=== PATIENT | female | born 1980 | race Caucasian/White ===

== ENCOUNTER → 2016-07-23 10:00 | Outpatient (CLI) | payer MEDICAID ==
[2010-03-07 00:30] VITALS: BMI 32.1
[~2016-07-23 10:00] MED LIST: AMBIEN10 MG PO; CYCLOBENZAPRINE10 MG PO; HYDROCODONE-APA1 TAB PO; LEVOTHYROXINE50 MCG PO; XANAX1 MG PO; ZANAFLEX4 MG PO
[2016-09-01 06:41] VITALS: BMI 24.8
== END | disposition home or self-care (01) ==
LOC: D.MRI 07-18 13:00
DX: M75.21 Bicipital tendinitis, right shoulder (principal); S43.491A Other sprain of right shoulder joint, initial encounter

== ENCOUNTER 2016-09-01 06:34 | Day surgery (SDC) | payer MEDICAID ==
[2016-08-29 10:13] LABS: HEMOGLOBIN 13.7 g/dL (12-16); MCH 31.9 pg (26.0-34.0); MCHC 34.3 g/dL (31.0-37.0); MCV 93.2 fL (80.0-100.0); MEAN PLATELET VOLUME 9.8 fL (7.4-10.4); RBC 4.29 10x6/uL (4.00-5.40); RDW 12.2 % (11.5-14.5); WBC 7.1 10x3/uL (4.8-10.8)
[~2016-09-01] VITALS: Ht 160 cm; Wt 63.5 kg
[~2016-09-01 06:34] MED LIST changes: -HYDROCODONE-APA1 TAB PO
[2016-09-01 06:41] VITALS: BP 112/78; Ht 160 cm; Wt 63.5 kg
[2016-09-01] MEDS ORDERED: HYDROCODONE-APA1 TAB PO (08:46)
--- NOTE | 2016-09-01 09:06 | NUR ---
VANCOMYCIN 1 GRAM IN 250CC OF NORMAL SALINE INFUSING ON ADMIT
--- NOTE | 2016-09-01 10:14 | NUR ---
1014--IV DC'D, PT UP TO DRESS AT THIS TIME. DENISE MULLIGAN
--- NOTE | 2016-09-01 10:44 | NUR ---
1040--DISCHARGE INSTRUCTIONS GIVEN, PT VERBALIZES UNDERSTANDING. PT OFF UNIT VIA SHILO. DENISE MULLIGAN
--- NOTE | 2016-09-03 09:22 | OP ---
PATIENT NAME: LAUREN FIGUEROA MEDICAL RECORD: [id number] :82 LOCATION:[facility] ADMISSION DATE: SURGEON: KENDY DUNN MD DATE OF OPERATION: 09/01/2016 PREOPERATIVE DIAGNOSES: Impingement syndrome, acromioclavicular arthritis and biceps tendinitis. POSTOPERATIVE DIAGNOSES: Impingement syndrome, acromioclavicular arthritis and biceps tendinitis. PROCEDURES: Arthroscopic subacromial decompression and distal clavicle excision. SURGEON: Kendy Dunn MD. ANESTHESIA: General. INTRAOPERATIVE COMPLICATIONS: None. SUMMARY OF PATHOLOGIC FINDINGS: While the patient did have biceps tendinitis, I felt like it did not warrant tenotomy or tenodesis. She did have severe impingement with excoriation of the coracoacromial ligament as well as the supraspinatus tendinous footprint. OPERATIVE SUMMARY IN DETAIL: After obtaining the appropriate preoperative orthopedic surgery consents as well as anesthetic consultation, evaluation and clearance, the patient was brought to the operating room and placed on the operating table in supine position. After general laryngeal mask was administered, the patient was placed in a left lateral decubitus position. All pressure points were well padded to include down leg peroneal pad as well as axillary roll. The patient was held firmly to the operating table using the vacuum pack suction system. Right upper extremity and shoulder were then prepped and draped in a routine sterile fashion. The arm was held in the Arthrex traction boom at 30 degrees of forward flexion, 30 degrees of abduction with 10 pounds of traction laterally. Arthroscopy was established in the glenohumeral joint from a posterior portal. Anterior portal was established in the anterior safe interval. Diagnostic arthroscopy showed the patient to have biceps tendonitis. Intraoperative photographs were taken. Attention was then turned to the subacromial space. Accessory tertiary portal was created to use the [place] tissue ablation system to denude the undersurface of the acromion of all soft tissue elements and released coracoacromial ligament. A 5-0 barrel faviola was then used to perform acromioplasty at the level of acromioclavicular joint. Having completed this, through a separate anterior arthroscopic portal, a 1 cm distal clavicle was excised. Having completed this, arthroscopy portals were closed in routine interrupted fashion using 4-0 Prolene. Sterile dressings were applied. The patient was awakened, taken to recovery in stable condition. All final needle and sponge counts were correct. TRANSINT:[id number] Voice Confirmation ID: [id number] DOCUMENT ID: [id number] OPERATIVE REPORT [id number] LAUREN FIGUEROA MD, KENDY DALTON at 0922 CC: [id number] DICTATION DATE: 09/01/16 0843 SPECIAL EDUCATION TUTOR: 09/01/16 1054 [facility] 09/01/[address] [address]
== END 2016-09-01 10:40 | disposition home or self-care (01) ==
LOC: D.OPS 06:34 → D.PAN 09:00 → D.OPS 09:20 → D.PAN 09:20 → D.OPS 10:15 → D.PAN 10:35 → D.OPS 10:40
PROVIDERS: Anesthesiology
DX: M75.41 Impingement syndrome of right shoulder (principal); M13.811 Other specified arthritis, right shoulder; M75.21 Bicipital tendinitis, right shoulder

== ENCOUNTER → 2016-11-14 09:44 | Outpatient (CLI) | payer MEDICAID ==
[2016-09-01 06:41] VITALS: BMI 24.8
[~2016-11-14 09:44] MED LIST changes: +HYDROCODONE-APA1 TAB PO
== END | disposition home or self-care (01) ==
LOC: D.MRI 09:44
DX: M25.511 Pain in right shoulder (principal); S43.491A Other sprain of right shoulder joint, initial encounter

== ENCOUNTER 2017-01-26 01:58 | Emergency (ER) | payer MEDICAID ==
[2016-09-01 06:41] VITALS: BMI 24.8
== END 2017-01-26 03:23 | disposition home or self-care (01) ==
LOC: D.ER 01:58
DX: S16.1XXA Strain of muscle, fascia and tendon at neck level, initial encounter (principal); V89.2XXA Person injured in unspecified motor-vehicle accident, traffic, initial encounter; S43.401A Unspecified sprain of right shoulder joint, initial encounter

== ENCOUNTER 2017-05-25 07:10 | Inpatient (IN) | payer MEDICAID ==
[2017-05-22 12:08] LABS: BASOPHILS 0.1 % (0-2); EOSINOPHILS 0.4 % (0-7); HEMATOCRIT 40.6 % (36.0-48.0); HEMOGLOBIN 14.3 g/dL (12-16); LYMPHOCYTES 32.9 % (15-50); MCH 32.7 pg (26.0-34.0); MCHC 35.2 g/dL (31.0-37.0); MCV 92.9 fL (80.0-100.0); MEAN PLATELET VOLUME 9.7 fL (7.4-10.4); MONOCYTES 5.8 % (2-11); NEUTROPHILS 60.8 % (40-80); PLATELET COUNT 231 10x3/uL (130-400); RBC 4.37 10x6/uL (4.00-5.40); RDW 11.9 % (11.5-14.5); WBC 6.8 10x3/uL (4.8-10.8)
[2017-05-22 12:17] LABS: CALC OSMOLALITY 276 mosm/kg (275-300); CALCIUM 9.3 mg/dL (8.5-10.1); CARBON DIOXIDE 27.4 mmol/L (21.0-32.0); CHLORIDE - SERUM 103 mmol/L (98-107); CREATININE - SERUM 0.9 mg/dL (0.6-1.3); GLUCOSE 81 mg/dL (74-106); POTASSIUM - SERUM 3.5 mmol/L (3.5-5.1); SODIUM 139 mmol/L (136-145); UREA NITROGEN 13 mg/dL (7-18); eGFR NON AFRICAN AMERICAN 75 mL/min (90-120)
[2017-05-25] VITALS (15 sets, daily range): BP systolic 97–122; BP diastolic 58–75; Ht 160 cm; Wt 64.1 kg
[~2017-05-25] VITALS: Ht 160 cm; Wt 64.1 kg
[~2017-05-25 07:10] MED LIST changes: +HYDROCODON-ACE1 EAC7 PO; +KLONOPIN1 MG PO
[2017-05-25 08:04] LABS: HCG URINE NEGATIVE (NEGATIVE)
--- NOTE | 2017-05-25 13:08 | NUR ---
Pt received to room by bed with bedside report from recovery nurse. Pt is resting with eyes closed, 2L O2via NC wiht O2 sat at 98%, Pt does wake when her name is spoken and arm shaken slightly, she is able to answer questions about pain and states "that catheter hurts, please take it out" before able to explain why that can't be done at this time, pt falls back to sleep. Bikini incision with dermabond, clean and dry. Abd soft to touch. Sim cath to bedside drain with 30ml dark valdo urine noted. IV to right wrist patent and infusing via pump per orders. SCD's on bilat and pump turned on. Pt family allowed to come to room. Pt does not awaken except to complain of her catheter causing her pain. Attempt to reposition catheter wihtout success, also repositioned pt to right tilt and pillow under knees to help decrease pressure. Side rails up x 2 with phone and call light in reach. whiteboard updated.
--- NOTE | 2017-05-25 13:12 | NUR ---
Dilaudid mud logger started, pt given mud logger button and verbally explained use twice. Pt mother ask if she can push the button for her since she was sleeping. Explained that if pt is sleeping than pain was under enough control to allow her ability to rest. Also explained that if someone else continue to use pt mud logger than could cause resp depression, pt spouse at bedside and heard this conversation also. Side rails up x 2 with phone and call light in reach.
--- NOTE | 2017-05-25 14:06 | NUR ---
1000ML LR BOLUS BEGUN VIA ALARIS PUMP AT THIS TIME PER V/O DR EMERSON.
--- NOTE | 2017-05-25 14:48 | NUR ---
TORADOL GIVEN SIVP PER ORDERS. SEE EMAR. PT'S MOTHER NOTED TO PUSH DELIVERY STOCK CLERK BUTTON AT THIS TIME. PT SOMNOLENT, AROUSES ONLY TO STRONG TACTILE STIMULATION ON ARM. ADV PT'S MOTHER THAT DELIVERY STOCK CLERK BUTTON IS ONLY TO BE PRESSED BY PT DUE TO OVERSEDATION AND RESPIRATORY DEPRESSION. PT'S MOTHER STATES "SHE PRESSED IT. I SAW HER PRESS IT." ADV AGAIN THAT PT IS THE ONLY ONE WHO NEEDS TO PRESS BOLUS BUTTON. UNDERSTANDING VERBALIZED. BED LOW, WHEELS LOCKED, CL IN REACH, SIDE RAILS UP X2.
--- NOTE | 2017-05-25 14:52 | NUR ---
LR BOLUS COMPLETE. OLD BAG DOWN, NEW BAG UP TO PRESENT TUBING.
--- NOTE | 2017-05-25 15:18 | NUR ---
PAIN REASSESSMENT COMPLETE. PT RESTING WITH EYES CLOSED, RESP EVEN & UNLABORED. PT LEFT UNDISTURBED.
--- NOTE | 2017-05-25 15:53 | NUR ---
RN TO PT BEDSIDE WITH FRESH ICE CAP AND CUP OF ICE CHIPS. PT STATES " I WANT THIS CATHETER OUT NOW." EDU PT ON NEED FOR CORTEZ CATH AT THIS TIME AND THAT MD WILL GIVE ORDER LATER ON THIS EVENING TO REMOVE. PT VERBALIZED UNDERSTANDING. 125ML DARK YELLOW URINE EMPTIED FROM UROMETER AT THIS TIME. PT REPOSITIONED TO RIGHT LATERAL TILT WITH PILLOW AT BACK FOR SUPPORT. PT TOLERATED WELL. SHIFT ASSESSMENT COMPLETED AT THIS TIME. BREATH SOUNDS CLEAR AND UNLABORED X2. HR-RRR, PPP, BOWEL SOUNDS HYPOACTIVE X4. ABD NONDISTENDED, TENDER TO TOUCH. LOW TRANSVERSE INCISION WITH DERMABOND C/D/I WITH ICE CAP OVER INCISION. PIV NOTED TO RT WRIST PATENT WITH NO ERYTHEMA OR EDEMA NOTED. LR INFUSING @ 125ML/HR VIA ALARIS PUMP. PT DENIES FURTHER NEEDS AT THIS TIME. BED LOW, WHEELS LOCKED, CL IN REACH, SIDE RAILS UP X2.
--- NOTE | 2017-05-25 16:00 | NUR ---
PT REPORTS CUP OF ICE FELL ON FLOOR. FRESH CUP PROVIDED. PT DENIES FURTHER NEEDS OR PAINA T THIS TIME. WILL CONT TO MONITOR.
--- NOTE | 2017-05-25 17:38 | NUR ---
REGLAN 10MG/2ML SIVP GIVEN PER ORDERS SEE EMAR. TORADOL 30MG/1ML GIVEN SIVP. PT TOLERATED WELL. 50 ML CLEAR YELLOW URINE EMPTIED FROM UROMETER. PUMPS CLEARED AT THIS TIME. PT REPOSITIONED TO LT LATERAL TILT WITH PILLOW AT BACK FOR SUPPORT. PT DENIES FURTHER NEEDS.
--- NOTE | 2017-05-25 19:15 | NUR ---
EYES CLOSED DURING INITIAL ROUNDS BUT EASILY AWAKENED. INTRODUCED SELF. V/S TAKEN. ASSESSMENT DONE. STATUS POST BRAXTON TODAY. LOW ABD TRANSVERSE INCISION WITH DERMABOND. IVF LR TO R WRIST AREA @ 125cc/hr. IV SITE OK. ON DILAUDID FLEXOGRAPHIC PRESS HELPER FOR PAIN MANAGEMENT. CORTEZ CATH TO DRAINAGE BAG. SCD"s TO BOTH LOWER EXTREMITIES TO PREVENT DVT. INCENTIVE SPIROMETER AT BEDSIDE--REMINDED PT TO USE. OFFERED ICE CHIPS. O2 SAT 100% AT 2L/NC.
--- NOTE | 2017-05-25 23:32 | NUR ---
REGLAN 10mg ORADOL 30mg IV GIVEN SCHED. SEE E-MAR.
--- NOTE | 2017-05-26 00:18 | NUR ---
EYES CLOSED.EFT UNDISTURBED.
--- NOTE | 2017-05-26 00:18 | NUR ---
EYES CLOSED. LEFT UNDISTURBED.
--- NOTE | 2017-05-26 00:40 | NUR ---
PT TURNED AND SUPPORTED TO RIGHT LATERAL POSITION FOR COMFORT.
[2017-05-26 03:44] VITALS: BP 92/50
--- NOTE | 2017-05-26 03:44 | NUR ---
V/S RECHECKED--SEE V/S SHEET. CORTEZ CATH BAG EMTIED. IV PUMP CLEARED.
--- NOTE | 2017-05-26 04:10 | NUR ---
APPEARS TO BE ASLEEP. RESPIRATION EASY. "SPOUSE" IN THE ROOM.
--- NOTE | 2017-05-26 06:13 | NUR ---
TORADOL 30mg IV /REGLAN 10mg GIVEN [id number] EVERY 6hrs. SEE E-MAR. REFILLED ICE BAG TO ABD INCISION. SLEPT FAIRLY WELL DURING THE NIGHT. CONTINUING PLAN OF CARE.
--- NOTE | 2017-05-26 06:59 | NUR ---
REPORT GIVEN TO AM SHIFT NURSES.
--- NOTE | 2017-05-26 06:59 | NUR ---
DR EMERSON TO ROOM TO DISCUSS POC WITH PT. PT VERBALIZES UNDERSTANDING TO CORTEZ CATH BEING D/C'D, SWITCH TO PO MEDS AND AMB. CORTEZ CATH REMOVED PER THIS RN AT THIS TIME WITH 30 CC CLEAR YELLOW URINE NOTED IN UROMETER. PT TOLERATED WELL. TELLER COORDINATOR BUTTON PRESSED PER PT. ADV WILL RETURN TO D/C TELLER COORDINATOR. PT VERBALIZED UNDERSTANDING AND DENIES FURTHER NEEDS AT THIS TIME.
[2017-05-26 07:26] VITALS: BP 100/62
--- NOTE | 2017-05-26 07:26 | NUR ---
SHIFT ASSESSMENT COMPLETE AT THIS TIME. PT AAOX3. BREATH SOUNDS CLEAR & UNLABORED X2. HR-RRR, PPP, BOWEL SOUNDS ACTIVE X4. LOW TRANSVERSE INCISION C/D/I WITH DERMABOND INTACT. PIV TO RT WRIST PATENT WITH LR INFUSING AT 125ML/HR. SCD'S ON AT THIS TIME. PT REPORTS NEED TO VOID. PIV SL AT THIS TIME. PT ASSISTED TO SITTING ON SIDE OF BED WITH NO C/O DIZZINESS. PT ASSISTED TO STANDING WITHOUT DIFFICULTY AND AMB PER SELF TO BATHROOM. VOIDS LARGE AMOUNT OF BLOOD TINGED URINE IN TOILET, MISSED THE [place] HAT. CLEAN GOWN, PANTIES, AND LINENS PROVIDED. PT AMB PER SELF BACK TO BED AND MINIMAL ASSISTANCE NEEDED TO GET PT BACK UP ON THE BED. PT DENIES FURTHER NEEDS AT THIS TIME AND DESIRES TO HAVE MEAL TRAY. WILL AMB [place] "LATER." BED LOW, WHEELS LOCKED, CL IN REACH, SIDE RAILS UP X2.
--- NOTE | 2017-05-26 08:19 | NUR ---
PT REPORTS PAIN 02/19. PERCOCET 5/325X2 TABS GIVEN AT THIS TIME PER ORDERS. SEE EMAR. CUP OF ICE WATER PROVIDED WELL. PT DENIES FURTHER NEEDS. WILL CONT TO MONITOR.
--- NOTE | 2017-05-26 08:32 | NUR ---
PRUNE JUICE AND SPRITE PROVIDED PER PT REQUEST AND MD ORDERS. PT DENIES FURTHER NEEDS.
--- NOTE | 2017-05-26 08:56 | NUR ---
PAIN REASSESSMENT COMPLETE. PT REPORTS PAIN 6/10 AT THIS TIME AND REPORTS JUST VOIDED. 100ML PINK BLOOD TINGED URINE NOTED IN [place] HAT. PT DRINKING PRUNE JUICE AT THIS TIME AND DENIES FURTHER NEEDS. LIGHTS DIMMED. SPOUSE REMAINS AT BEDSIDE FOR SUPPORT.
--- NOTE | 2017-05-26 10:22 | NUR ---
ROUNDS MADE. PT LYING ON BACK, HOB 30 DEGREES. PT RESTING, EYES CLOSED, RESP EVEN & UNLABORED. PT LEFT UNDISTURBED AT THIS TIME. SPOUSE REMAINS AT BEDSIDE FOR SUPPORT.
--- NOTE | 2017-05-26 11:01 | NUR ---
PT RINGS CL. RN TO PT BEDSIDE. PT IS DROWSY AND ONLY OPENS EYES SLIGHTLY UPON THIS RN ENTERING ROOM. PT C/O PAIN 8/10 IN ABD. ADV PT PAIN MEDICATION DUE IN 1 HR. PT VERBALIZED UNDERSTANDING. FRESH ICE CAP PLACED AT ABD. PT DENIES FURTHER NEEDS AT THIS TIME.
[2017-05-26 12:21] VITALS: BP 101/63
--- NOTE | 2017-05-26 12:21 | NUR ---
SL FLUSHED WITHOUT DIFFICULTY. PT C/O PAIN 04/21 IN ABD. PERCOCET 5/325 X2 TABS GIVEN PER ORDERS. TORADOL AND REGLAN GIVEN PER ORDERS. SEE EMAR. PT KERI. WELL. PT FINISHED 70% OF MEAL TRAY WITH SPOUSE FINISHED THE REST. PT DENIES FURTHER NEEDS AT THIS TIME. WILL CONT TO MONITOR.
--- NOTE | 2017-05-26 13:02 | NUR ---
PAIN REASSESSMENT COMPLETE. PT LYING ON BACK, HOB 30 DEGREES. PT REPORTS PAIN 'IS A LITTLE BETTER' AND RATES 8/10. PT REPORTS NOT PASSING GAS. ENCOURAGED PT TO AMB IN [place]. PT VERBALIZED UNDERSTANDING AND SAYS "I WILL IN A LITTLE WHILE." DENIES FURTHER NEEDS.
--- NOTE | 2017-05-26 14:51 | NUR ---
ROUNDS MADE. PT RESTING WITH EYES CLOSED, RESP EVEN & UNLABORED. SPOUSE AT BEDSIDE WATCHING TV. PT LEFT UNDISTURBED AT THIS TIME.
--- NOTE | 2017-05-26 15:41 | NUR ---
PT'S SPOUSE TO NURSE DESK WITH REQUEST FOR MORE PRUNE JUICE. EDU ON JUST ONE TIME DAILY. HE STATES "WELL SHE DIDN'T DRINK NONE OF IT. SHE TOOK ONE SIP AND THREW IT OUT." CUP OF PRUNE JUICE PROVIDED TO PT. EDU PT ON DRINKING IT AND IT'S PURPOSE. PT VERBALIZED UNDERSTANDING. ENCOURAGED PT TO WALK HALLWAY AT THIS TIME. PT STATES "I WILL AFTER I DRINK THIS JUICE." DENIES FURTHER NEEDS.
[2017-05-26 15:42] VITALS: BP 100/57
--- NOTE | 2017-05-26 16:28 | NUR ---
PT AMB IN HALLWAY WITH SPOUSE. STEADY GAIT NOTED. PT AMB TO SURGERY DOUBLE DOORS AND BACK TO ROOM.
--- NOTE | 2017-05-26 16:30 | NUR ---
PT REQUESTS & RECEIVES PERCOCET 5/325MG X2 TAB FOR PAIN RATED 7/10 AT THIS TIME. FRESH ICE WATER PROVIDED. PT DENIES FURTHER NEEDS.
--- NOTE | 2017-05-26 17:08 | NUR ---
CALL RCVD FROM DR EMERSON WITH NEW ORDERS FOR PO REGLAN 10MG X2 DOSES Q6 AND 10 MG TORADOL PO Q6H WELL AMBIEN AT BEDTIME.
--- NOTE | 2017-05-26 17:15 | NUR ---
PAIN REASSESSMENT COMPLETE. PT RESTING ON BACK, EYES CLOSED, RESP EVEN & UNLABORED. PT LEFT UNDISTURBED.
--- NOTE | 2017-05-26 18:07 | NUR ---
TORADOL 10MG X1 TAB PO AND REGLAN 10MG X1 TAB PO GIVEN PER ORDERS. SEE EMAR. PT RATES PAIN 8/10 AT THIS TIME AND DESCRIBES THIS UPPER ABD PAIN. ADV PT TO AMB IN [place] TO HELP WITH GAS PAIN. PT VERBALIZED UNDERSTANDING AND STATES "I JUST WANT TO REST." DENIES FURTHER NEEDS. SPOUSE REMAINS AT BEDSIDE.
--- NOTE | 2017-05-26 18:43 | NUR ---
PT RINGS CL REQUESTING TO GO OUTSIDE TO SMOKE A CIGARETTE. ADV PT THAT SHE CANNOT LEAVE THE UNIT AND THAT SHE MAY HAVE HER NICOTINE PATCH. PT REFUSED, DENIES FURTHER NEEDS.
[2017-05-26 19:15] VITALS: BP 105/70
--- NOTE | 2017-05-26 19:15 | NUR ---
REC'D PT LYING IN BED AWAKE WITH LIGHTS TURNED DOWN. INTRODUCTIONS MADE AND PT INFORMED THAT SHE IS GOING TO BE TRANSFERED TO A DIFFERENT ROOM IN APPROX 1 HR. PT VERBALIZES UNDERSTANDING AND IS AGREEABLE. SHIFT ASSESSMENT COMPLETED. BREATH SOUNDS CL/=, ABD SOFT,NON DISTENDED. BOWEL SOUNDS PRESENT X 4. PT REPORTS PASSING FLATUS AND DENIES DIFFICULTY WITH VOIDING. LOW TRANSVERSE INCISION W/DERMADOND C/D/I W/OUT DRAINAGE. NO VAG BLEEDING NOTED TO PERIPAD. PT REPORTS ONLY NOTICING ANY WHEN SHE WIPES. NO EDEMA NOTED TO LOWER EXTREMITIES. PEDAL PULSES PRESENT X 2. SCD WRAPS OFF AT PRESENT. PT HAS SALINE LOCK TO RT FOREARM. PT WAS MEDICATED BY AM SHIFT. REPORTS PAIN 8/10 AT THIS TIME. CONTINUED POC DISCUSSED W/PT IN REGARDS TO AMBULATING TO NEW ROOM. PT VERBALIZES UNDERSTANDING AND AGREEABLE. BED LOW. SIDE RAILS UP X 2. CALL LIGHT AT PT'S SIDE. FRESH ICE WATER SERVED. NO FURTHER NEEDS VOICED AT THIS TIME.
--- NOTE | 2017-05-26 20:10 | NUR ---
THIS RN TO BEDSIDE TO ADMIN 2 TABS PERCOCET 5/325MG PO. SIG OTHER TO PT'S ROOM AT THIS TIME.
--- NOTE | 2017-05-26 20:45 | NUR ---
PT AND SIG OTHER REPORT THEY ARE READY TO BE TRANSFERED TO NEW ROOM. THIS RN TO PTF'S ROOM. PT OOB W/OUT ASSISTANCE. TO SITTING ON SIDE OF BED. DENIES DIZZINES. PT AMBULATES TO ROOM 1214. TO BED W/OUT ASSISTANCE. ORIENTED TO ROOM, CALL LIGHT AND PHONE. PANTIES AND PADS PROVIDED. SIG OTHER AT BEDSIDE. PT DENIES NEEDING ANYTHING ADDITIONAL TO EAT OR DRINK AT THIS TIME. [facility] MUG W/ICE WATER ON BEDSIDE TABLE. PT INFORMED OF NEXT TIME SHE MAY HAVE PAIN MEDICATION. ADDITIONAL TEACHING PROVIDED IN REGARDS TO AMBUALTING FOR RECOVERY AND ANSWERED QUESTIONS IN REGARD TO WAYS TO INCREASE FREQUENCY OF BM'S. PT BED LOW, SIDE RAILS UP X 2. CALL LIGHT AND PHONE AT PT'S SIDE. SIG OTHER TO REMAIN W/PT. BLANKET AND PILLOW PROVIDE FOR SIG OTHER. NO FURTHER NEEDS VOICED. PT INFORMED THAT Sumit CHRISTOPHER RN WILL BE HER NURSE TO CARE FOR HER.
--- NOTE | 2017-05-26 21:15 | NUR ---
SALINE LOCK DC'D INTACT. SITE WNL. BANDAID PLACED OVER SITE.
--- NOTE | 2017-05-26 22:45 | NUR ---
PT RESTING WITH EYES CLOSED, RESP QUIET, NO DISTRESS NOTED, LEFT UNDISTURBED AT THIS TIME, BEDDING PROVIDED TO SPOUSE
[2017-05-27 00:11] VITALS: BP 96/57
--- NOTE | 2017-05-27 00:11 | NUR ---
PT RESTING WITH EYES CLOSED, AROUSES TO SOFT VERBAL STIMULATION, VS OBTAINED, ADM REGLAN PO PER MD ORDERS, SEE EMAR, WITH FRESH LEMON WAINWRIGHT SODA, PT RATES INC PAIN 8/10 WITH MOVEMENT, OFFERED PT PERCOCET X 1 TABLET, PT REFUSES, PT PREFERS TO RECEIVED 2 PERCOCET, INFORMED PT WHEN BOTH PERCOCET AND TORADOL WAS DUE, PT VERBALIZES UNDERSTANDING, DENIES FURTHER NEEDS AT THIS TIME, SPOUSE NOT IN ROOM AT THIS TIME
[2017-05-27 01:51] VITALS: BP 117/77
--- NOTE | 2017-05-27 01:51 | NUR ---
SPOUSE METAL ORGAN PIPE MAKER LIGHT, PT C/O HAVING A DIFFICULT TIME BREATHING, THIS RN AND UTE MENDEZ, RN TO ROOM, VS OBTAINED, LUNGS CTA, SPOUSE INFORMS US THAT PT HAS ANXIETY AND SHE HASN'T HAD A BM IN 3-4 WEEKS, PT C/O GAS PAIN AND INC PAIN 02/19, ADM TORADOL PO PER MD ORDERS, INFORMED PT THAT I WILL ADM PERCOCET WHEN DUE, PT REQUESTS PRUNE JUICE, PRUNE JUICE COCKTAIN SERVED WARM, PT DRINKS ALL OF PRUNE JUICE COCKTAIL, ASSISTED PT TO A COMFORTABLE POSITION, INFORMED PT THAT I WILL BE BACK SHORTLY WITH THE PERCOCET, PT VERBALIZES UNDERSTANDING
--- NOTE | 2017-05-27 02:31 | NUR ---
PT RESTING, REPORTS FEELING A LITTLE BETTER, STILL RATES PAIN 02/19, ADM PERCOCET PO PER MD ORDERS, SEE EMAR, INFORMED PT THAT I WILL BE BACK SHORTLY TO CHECK ON HER, PT VERBALIZES UNDERSTANDING, DENIES FURTHER NEEDS AT THIS TIME, SPOUSE AT BEDSIDE
--- NOTE | 2017-05-27 03:35 | NUR ---
PT RESTING WITH EYES CLOSED, RESP QUIET, NO DISTRESS NOTED, LEFT UNDISTURBED AT THIS TIME, SPOUSE AWAKE, RESTING IN BED WITH PT, SPOUSE GIVES ME A THUMBS UP
--- NOTE | 2017-05-27 05:36 | NUR ---
PT RESTING WITH EYES CLOSED, RESP QUIET, NO DISTRESS NOTED, LEFT UNDISTURBED AT THIS TIME, SPOUSE ASLEEP IN BED WITH PT
[2017-05-27 07:15] VITALS: BP 112/72
--- NOTE | 2017-05-27 07:20 | NUR ---
SHIFT REPORT TO FLAKITA MONTERO RN
--- NOTE | 2017-05-27 07:30 | NUR ---
PT WAS RECEIVED THIS AM LYING IN BED THIS AM. SHE STATES THAT SHE IS STILL HAVING PAIN. HER PAIN IS ABOUT AN 8 AND WOULD LIKE SOME PAIN MED. GEN- AWAKE AND ALERT. LUNGS- CLEAR. HEART- RRR. ABD- SOFT WITH TENDERNESS. BS+ BIKINI LINE INCISION WITH DERMABOND. EXT- NO EDEMA. BED IS LOW, SIDE RAILS UP X 2 AND CALL LIGHT IN REACH.
--- NOTE | 2017-05-27 08:08 | NUR ---
PAIN MED GIVEN FOR A PAIN RATED AT 8/10 IN HER ABD.
[2017-05-27] MEDS ORDERED: IBUPROFEN800 MG PO (08:28)
[2017-05-27] MEDS ORDERED: LINZESS145 MCG PO (08:28)
[2017-05-27] MEDS ORDERED: PERCOCET 7.5/321 TAB PO (08:29)
--- NOTE | 2017-05-27 08:36 | NUR ---
PTS DISCHARGE INSTRUCTIONS DISCUSSED WITH PT. HANDOUTS WERE GIVEN WITH INSTRUCTIONS, MEDICATION ABRAHAM AND HEALTH SUMMARY. PRESCRIPTIONS GIVEN. PT IS GOING TO GET DRESSED AND THEN WE WILL CALL A WHEELCHAIR TO TAKE HER TO THE FRONT DOOR.
--- NOTE | 2017-05-27 09:39 | NUR ---
PT TAKEN TO FRONT OF HOSPITAL BY WHEELCHAIR.
--- NOTE | 2017-06-01 07:56 | DS ---
PATIENT:LAUREN FIGUEROA :82 MEDICAL RECORD: [id number] DISCHARGE SUMMARY ADMISSION DATE: 05/25/17 DISCHARGE DATE: 05/27/17 DATE OF ADMISSION: 05/25/2017 DATE OF DISCHARGE: 05/27/2017 ADMISSION DIAGNOSES: 1. Pelvic pain. 2. Dysfunctional bleeding. DISCHARGE DIAGNOSES: 1. Pelvic pain. 2. Dysfunctional bleeding. 3. Chronic constipation. PROCEDURES PERFORMED WHILE HOSPITALIZED: Total abdominal hysterectomy and bilateral salpingectomy. ATTENDING: Charan Alexandre MD HISTORY OF PRESENT ILLNESS: See the H&P on the chart. SUMMARY OF HOSPITALIZATION: The patient was admitted to the hospital and underwent procedure without incident. The patient is doing well postoperatively, tolerating a regular diet and has adequate pain control. DISCHARGE MEDICATIONS: Will include Percocet and Motrin for pain management. The patient has discussed with me chronic constipation. Given the narcotic use postoperatively, I will start her on Linzess 72 mcg daily in the postoperative period. Postoperative precautions have been reviewed, and she will follow up in 2 weeks in the clinic. TRANSINT:[id number] Voice Confirmation ID: [id number] DOCUMENT ID: [id number] CHARAN ALEXANDRE MD at 0756 CC: [id number] DICTATION DATE: 05/27/17 07 ASSISTANT DISTRIBUTION MANAGER: 05/27/17 0809 DIS IN 05/27/17 [id number] [place] [address]
--- NOTE | 2017-06-26 14:40 | OP ---
PATIENT NAME: LAUREN FIGUEROA MEDICAL RECORD: [id number] :82 LOCATION:[facility] D.1214 ADMISSION DATE:05/25/17 SURGEON: АЛЕКСАНДР EMERSON MD DATE OF OPERATION: 05/25/2017 PREOPERATIVE DIAGNOSES: 1. Persistent left-sided pelvic pain. 2. Dysmenorrhea. 3. Dysfunctional uterine bleeding. POSTOPERATIVE DIAGNOSES: 1. Persistent left-sided pelvic pain. 2. Dysmenorrhea. 3. Dysfunctional uterine bleeding. PROCEDURE: 1. Total abdominal hysterectomy. 2. Left salpingo-oophorectomy. SURGEON: Александр Emerson MD DELIVERY OF SHOPPING NEWS: None. ANESTHESIOLOGIST: MINA Pérez. FINDINGS: Uterus is slightly enlarged and boggy. The tubes are unremarkable. Left ovary appears unremarkable. No obvious evidence of endometriosis. SPECIMENS REMOVED: Uterus with tubes and left ovary. Specimen disposition to pathology. ESTIMATED BLOOD LOSS: 100 cc. FLUIDS: 1000 cc of lactated Ringer's. URINE OUTPUT: 30 cc of concentrated urine. DRAIN: Sim to gravity. COMPLICATIONS: None. INDICATION: The patient is a 36-year-old female with longstanding history of left pelvic pain and dysmenorrhea. The patient has been tried on conservative therapy without results. DESCRIPTION OF PROCEDURE: Informed consent was assured, the patient was taken to the operating room, anesthetic was obtained. The patient was supine on the table and prepped and draped. Incision was made over the lower abdomen, carried down to the underlying layer of the fascia, which was opened in the midline and the incision extended laterally. The rectus bellies were and peritoneum was entered sharply. Peritoneal opening was extended. The bowel was packed free of the pelvis with sponges. Using a Jimenez and Seymour retractors, the uterus was visualized, Garrett clamps placed over the cornual regions and the uterus elevated. Using a Alger clamp, the right round ligament was grasped, elevated, stick tied. The round ligament was entered with OPERATIVE REPORT [id number] LUAREN FIGUEROA Bovie cautery. The anterior leaf of the broad ligament was developed to the midline of the uterus anteriorly. Posteriorly, a window was developed and a Garrett clamp passed through this window, isolating the right tube from the ovary and the uterine ovarian ligament. This pedicle was developed sharply and tied with a [id number]-jrk-[id number] stitch for hemostasis. The connective tissue surrounding the right vascular bundle was dissected free and Garrett clamp and straight clamp applied to the vascular bundle of the right side. This pedicle was developed with scissors and a Garrett stitch applied for hemostasis. Attention now directed to the left side where the round ligament was elevated and stick tied as before. The broad ligament was entered with Bovie cautery and dissection was completed anteriorly for the bladder flap. The bladder was mobilized off the cervix. A window was now developed underneath the infundibulopelvic ligament and a Garrett clamp was passed here. The ovary was removed from its attachment to the infundibulopelvic ligament and a wnia-aav-qip stitch was applied here for hemostasis. Dissection continued down the left side of the uterus and the vascular bundle was identified, clamped with a straight and curved clamp as before and the pedicle mobilized. Garrett stitch was applied for hemostasis. The uterus was now amputated to allow better visualization of the lower pelvis. With the cervical stump elevated, straight clamps were used to serially clamp, cut and tie using the scalpel, the remaining portions of the cardinal ligaments. Once the level of the uterosacral ligaments were used, Zeppelin clamps were used to cross clamp the superior aspect of the vagina. The cervix was now removed with Peterson scissors. The cuff was closed with interrupted Vicryl stitches. The pelvis was copiously irrigated and irrigant removed. The packings were removed from the pelvis and initial count was correct times 1. The fascia was closed with a running stitch. After closure of the fascia, the second count of sponge, instruments and needles was correct. Skin was now reapproximated and sterile dressing applied. The patient is awake and went to the recovery room in stable condition. TRANSINT:[id number] Voice Confirmation ID: [id number] DOCUMENT ID: [id number] АЛЕКСАНДР EMERSON MD at 1440 CC: [id number] DICTATION DATE: 06/18/17 0747 PRECISION AGRONOMIST: 06/18/17 1201 DIS IN 05/27/17 [facility] [address] [place] [address]
== END 2017-05-27 09:00 | disposition home or self-care (01) | DRG 983 ==
LOC: D.OPS 07:10 → D.PAN 08:45 → D.OPS 08:45 → D.PAN 09:00 → D.LD 12:37 → D.OPS 12:38 → D.LD 12:38 → D.WS 05-26 20:45
PROVIDERS: ADMIT Obstetrics & Gynecology
PROC: 0UB70ZZ Excision of Bilateral Fallopian Tubes, Open Approach (ICD-10-PCS; 2017-05-25)
PROC: 0UT90ZZ Resection of Uterus, Open Approach (ICD-10-PCS; principal; 2017-05-25 09:00)
PROC: 0UTC0ZZ Resection of Cervix, Open Approach (ICD-10-PCS; 2017-05-25 09:00)
DX: R10.2 Pelvic and perineal pain (principal); N93.8 Other specified abnormal uterine and vaginal bleeding; K59.09 Other constipation

== ENCOUNTER 2017-06-06 12:25 | Emergency (ER) | payer MEDICAID ==
[2017-05-25 16:14] VITALS: BMI 25.0
[~2017-06-06 12:25] MED LIST changes: +IBUPROFEN800 MG PO; +LINZESS145 MCG PO; +PERCOCET 7.5/321 TAB PO
[2017-06-06 13:53] LABS: BASOPHILS 0.1 % (0-2); EOSINOPHILS 0.9 % (0-7); HEMOGLOBIN 12.5 g/dL (12-16); IMMATURE GRANULOCYTES 0.1 % (0-5); LYMPHOCYTES 28.4 % (15-50); MCH 32.1 pg (26.0-34.0); MCHC 33.8 g/dL (31.0-37.0); MCV 94.9 fL (80.0-100.0); MEAN PLATELET VOLUME 9.2 fL (7.4-10.4); MONOCYTES 5.5 % (2-11); PLATELET COUNT 278 10x3/uL (130-400); RDW 11.7 % (11.5-14.5); WBC 7.7 10x3/uL (4.8-10.8)
[2017-06-06 14:02] LABS: CALC OSMOLALITY 278 mosm/kg (275-300); CALCIUM 8.6 mg/dL (8.5-10.1); CARBON DIOXIDE 29.9 mmol/L (21.0-32.0); CHLORIDE - SERUM 105 mmol/L (98-107); CREATININE - SERUM 0.7 mg/dL (0.6-1.3); GLUCOSE 85 mg/dL (74-106); POTASSIUM - SERUM 3.8 mmol/L (3.5-5.1); SODIUM 140 mmol/L (136-145); UREA NITROGEN 15 mg/dL (7-18); eGFR NON AFRICAN AMERICAN > 90 mL/min (90-120)
== END 2017-06-06 15:10 | disposition home or self-care (01) ==
LOC: D.ER 12:25
PROVIDERS: Family Medicine
DX: M54.9 Dorsalgia, unspecified (principal); W10.9XXA Fall (on) (from) unspecified stairs and steps, initial encounter; Y93.89 Activity, other specified; Y92.029 Unspecified place in mobile home as the place of occurrence of the external cause

== ENCOUNTER 2017-07-05 16:36 | Emergency (ER) | payer MEDICAID ==
[2017-05-25 16:14] VITALS: BMI 25.0
== END 2017-07-05 19:30 | disposition home or self-care (01) ==
LOC: D.ER 16:36
DX: J06.9 Acute upper respiratory infection, unspecified (principal); J02.9 Acute pharyngitis, unspecified; E03.9 Hypothyroidism, unspecified

== ENCOUNTER 2018-03-28 14:23 | Emergency (ER) | payer MEDICAID ==
[~2018-03-28] VITALS: Ht 160 cm; Wt 59.0 kg
[2018-03-28 14:27] VITALS: Ht 160 cm; Wt 59.0 kg
[2018-03-28 16:25] VITALS: BP 101/56
[2018-03-28] MEDS ORDERED: TALWIN NX1 TAB PO (16:40)
[2018-03-28] MEDS ORDERED: VOLTAREN75 MG PO (16:40)
[2018-03-28] MEDS ORDERED: NORCO 10-325 TA1 TAB PO (17:14)
== END 2018-03-28 17:39 | disposition home or self-care (01) ==
LOC: D.ER 14:23
DX: M25.511 Pain in right shoulder (principal)

== ENCOUNTER 2018-04-11 19:19 | Emergency (ER) | payer MEDICAID ==
[~2018-04-11] VITALS: Ht 160 cm; Wt 58.2 kg
[~2018-04-11 19:19] MED LIST changes: +NORCO 10-325 TA1 TAB PO; +TALWIN NX1 TAB PO; +VOLTAREN75 MG PO
[2018-04-11 19:35] VITALS: Ht 160 cm; Wt 58.2 kg
[2018-04-11 20:09] LABS: BASOPHILS 0.3 % (0-2); EOSINOPHILS 1.9 % (0-7); HEMATOCRIT 37.1 % (36.0-48.0); HEMOGLOBIN 13.2 g/dL (12-16); IMMATURE GRANULOCYTES 0.2 % (0-5); LYMPHOCYTES 40.3 % (15-50); MCH 31.8 pg (26.0-34.0); MCHC 35.6 g/dL (31.0-37.0); MCV 89.4 fL (80.0-100.0); MEAN PLATELET VOLUME 9.9 fL (7.4-10.4); MONOCYTES 6.7 % (2-11); NEUTROPHILS 50.6 % (40-80); PLATELET COUNT 245 10x3/uL (130-400); RBC 4.15 10x6/uL (4.00-5.40); RDW 11.6 % (11.5-14.5); WBC 6.4 10x3/uL (4.8-10.8)
[2018-04-11 20:11] LABS: APPEARANCE CLEAR (CLEAR); BILIRUBIN NEGATIVE (NEGATIVE); COLOR YELLOW (YELLOW); GLUCOSE NEGATIVE (NEGATIVE); KETONE NEGATIVE (NEGATIVE); NITRITE NEGATIVE (NEGATIVE); PROTEIN NEGATIVE (NEGATIVE); UROBILINOGEN NORMAL (NORMAL)
[2018-04-11 20:21] LABS: ALBUMIN 3.7 g/dL (3.4-5.0); ALKALINE PHOSPHATASE 50 U/L (46-116); ALT (SGPT) 38 U/L (10-68); AMYLASE - SERUM 54 U/L (25-115); BILIRUBIN - TOTAL 0.54 mg/dL (0.2-1.3); CALC OSMOLALITY 283 mosm/kg (275-300); CALCIUM 8.7 mg/dL (8.5-10.1); CARBON DIOXIDE 28.5 mmol/L (21.0-32.0); CHLORIDE - SERUM 106 mmol/L (98-107); CREATININE - SERUM 0.9 mg/dL (0.6-1.3); GLUCOSE 73 mg/dL (74-106); LIPASE 269 U/L (73-393); POTASSIUM - SERUM 3.7 mmol/L (3.5-5.1); PROTEIN - SERUM 7.1 g/dL (6.4-8.2); SODIUM 142 mmol/L (136-145); UREA NITROGEN 17 mg/dL (7-18); eGFR NON AFRICAN AMERICAN 75 mL/min (90-120)
[2018-04-11] MEDS ORDERED: PHENAZOPYRIDIN100 MG PO (22:32)
[2018-04-11 23:13] VITALS: BP 103/78
[2018-04-14 07:27] LABS: CHLAMYDIA TRACHOMATIS, NAA Negative (Negative)
== END 2018-04-11 22:59 | disposition home or self-care (01) ==
LOC: D.ER 19:19
PROVIDERS: Family Medicine
DX: R10.9 Unspecified abdominal pain (principal)

== ENCOUNTER 2019-05-20 09:42 | Emergency (ER) | payer MEDICAID ==
[~2019-05-20] VITALS: Ht 160 cm; Wt 68.2 kg
[~2019-05-20 09:42] MED LIST changes: +PHENAZOPYRIDIN100 MG PO
[2019-05-20 10:03] VITALS: Ht 160 cm; Wt 68.2 kg
[2019-05-20] MEDS ORDERED: CYCLOBENZAPRINE10 MG PO (11:02)
[2019-05-20] MEDS ORDERED: VOLTAREN75 MG PO (11:02)
[2019-05-20 11:33] VITALS: BP 139/88
== END 2019-05-20 11:34 | disposition home or self-care (01) ==
LOC: D.ER 09:42
DX: S39.012A Strain of muscle, fascia and tendon of lower back, initial encounter (principal); X50.0XXA Overexertion from strenuous movement or load, initial encounter

== ENCOUNTER 2019-06-14 11:58 | Emergency (ER) | payer MEDICAID ==
[~2019-06-14] VITALS: Ht 160 cm; Wt 68.2 kg
[2019-06-14 12:18] VITALS: Ht 160 cm; Wt 68.2 kg
[2019-06-14 12:51] LABS: BASOPHILS 0.2 % (0-2); EOSINOPHILS 1.1 % (0-7); HEMATOCRIT 39.6 % (36.0-48.0); HEMOGLOBIN 13.4 g/dL (12-16); IMMATURE GRANULOCYTES 0.2 % (0-5); LYMPHOCYTES 29.6 % (15-50); MCH 31.5 pg (26.0-34.0); MCHC 33.8 g/dL (31.0-37.0); MCV 93.2 fL (80.0-100.0); MEAN PLATELET VOLUME 9.5 fL (7.4-10.4); MONOCYTES 5.8 % (2-11); NEUTROPHILS 63.1 % (40-80); PLATELET COUNT 282 10x3/uL (130-400); RBC 4.25 10x6/uL (4.00-5.40); RDW 12.1 % (11.5-14.5); WBC 5.5 10x3/uL (4.8-10.8)
[2019-06-14 12:56] LABS: ANION GAP 11.9 mmol/L (8-16); CALCIUM 8.9 mg/dL (8.5-10.1); CARBON DIOXIDE 27.9 mmol/L (21.0-32.0); CREATININE - SERUM 0.9 mg/dL (0.6-1.3); POTASSIUM - SERUM 3.8 mmol/L (3.5-5.1)
[2019-06-14 13:07] LABS: ALBUMIN 3.5 g/dL (3.4-5.0); BILIRUBIN - TOTAL 0.97 mg/dL (0.2-1.3); PROTEIN - SERUM 7.2 g/dL (6.4-8.2)
[2019-06-14 16:12] LABS: APPEARANCE CLEAR (CLEAR); BILIRUBIN NEGATIVE (NEGATIVE); COLOR YELLOW (YELLOW); GLUCOSE NEGATIVE (NEGATIVE); KETONE NEGATIVE (NEGATIVE); NITRITE NEGATIVE (NEGATIVE); PROTEIN NEGATIVE (NEGATIVE); UROBILINOGEN NORMAL (NORMAL)
[2019-06-14] MEDS ORDERED: PROBIOTIC1 EAC1 PO (17:38)
[2019-06-14] MEDS ORDERED: NAPROSYN500 MG PO (17:38)
[2019-06-14] MEDS ORDERED: ZOFRAN4 MG PO (17:40)
[2019-06-14 18:10] VITALS: BP 119/83
== END 2019-06-14 18:06 | disposition home or self-care (01) ==
LOC: D.ER 11:58
PROVIDERS: Family Medicine
DX: R10.9 Unspecified abdominal pain (principal); R19.4 Change in bowel habit

== ENCOUNTER 2019-06-16 15:15 | Emergency (ER) | payer MEDICAID ==
[~2019-06-16] VITALS: Ht 160 cm; Wt 68.2 kg
[~2019-06-16 15:15] MED LIST changes: +NAPROSYN500 MG PO; +PROBIOTIC1 EAC1 PO; +ZOFRAN4 MG PO
[2019-06-16 15:47] VITALS: Ht 160 cm; Wt 68.2 kg
[2019-06-16 18:22] LABS: APPEARANCE CLEAR (CLEAR); BILIRUBIN NEGATIVE (NEGATIVE); COLOR STRAW (YELLOW); GLUCOSE NEGATIVE (NEGATIVE); KETONE NEGATIVE (NEGATIVE); NITRITE NEGATIVE (NEGATIVE); PROTEIN NEGATIVE (NEGATIVE); SPECIFIC GRAVITY 1.005 (1.005-1.020); UROBILINOGEN NORMAL (NORMAL)
[2019-06-16 19:47] LABS: WBC 7.6 10x3/uL (4.8-10.8)
[2019-06-16 19:48] LABS: HEMATOCRIT 36.5 % (36.0-48.0); HEMOGLOBIN 12.5 g/dL (12-16); MCH 31.6 pg (26.0-34.0); MCHC 34.2 g/dL (31.0-37.0); MCV 92.2 fL (80.0-100.0); MEAN PLATELET VOLUME 9.4 fL (7.4-10.4); NEUTROPHILS 57.3 % (40-80); PLATELET COUNT 263 10x3/uL (130-400); RBC 3.96 10x6/uL (4.00-5.40); RDW 40.1 % (11.5-14.5)
[2019-06-16 19:49] LABS: BASOPHILS 0.1 % (0-2); EOSINOPHILS 0.9 % (0-7); IMMATURE GRANULOCYTES 0.1 % (0-5); LYMPHOCYTES 35.9 % (15-50); MONOCYTES 5.7 % (2-11)
[2019-06-16 19:49] LABS: CARBON DIOXIDE 27.9 mmol/L (21.0-32.0); CHLORIDE - SERUM 104 mmol/L (98-107); CREATININE - SERUM 0.8 mg/dL (0.6-1.3); GLUCOSE 81 mg/dL (74-106); SODIUM 138 mmol/L (136-145); eGFR NON AFRICAN AMERICAN 85 mL/min (90-120)
[2019-06-16 19:58] LABS: ALBUMIN 3.9 g/dL (3.4-5.0); ALKALINE PHOSPHATASE 59 U/L (46-116); ALT (SGPT) 34 U/L (10-68); AMYLASE - SERUM 66 U/L (25-115); BILIRUBIN - TOTAL 0.68 mg/dL (0.2-1.3); CALC OSMOLALITY 273 mosm/kg (275-300); LIPASE 216 U/L (73-393); PROTEIN - SERUM 6.9 g/dL (6.4-8.2); TROPONIN-I < 0.017 ng/mL (0.000-0.060); UREA NITROGEN 10 mg/dL (7-18)
[2019-06-16] MEDS ORDERED: PHENERGAN25 M1 PO (20:31)
[2019-06-16] MEDS ORDERED: FLAGYL500 MG PO (20:31)
[2019-06-16] MEDS ORDERED: LEVOFLOXACIN500 MG PO (20:31)
[2019-06-16 21:45] VITALS: BP 127/80
== END 2019-06-16 21:45 | disposition home or self-care (01) ==
LOC: D.ER 15:15
PROVIDERS: Family Medicine
DX: A04.9 Bacterial intestinal infection, unspecified (principal)